=== PATIENT | female | born 1995 | race Hispanic/Latino ===

== ENCOUNTER 2018-10-31 12:37 | Emergency (ER) | payer OTHER ==
[~2018-10-31] VITALS: Ht 157.5 cm; Wt 72.7 kg
[2018-10-31 13:19] LABS: BASO % 0.4 % (0.0-1.0); EOS # 0.1 10^3/uL (0.0-0.50); EOS % 0.6 % (0.0-3.0); HEMATOCRIT 39.4 % (36.0-47.0); HEMOGLOBIN 12.8 g/dl (12.0-15.5); LYMPH # 1.3 10^3/uL (1.5-6.5); LYMPH % 16.9 % (24.0-44.0); MEAN CORPUSCULAR HEMOGLOBIN 26.6 pg (27.0-33.0); MEAN CORPUSCULAR HGB CONC 32.5 g/dl (32.0-36.5); MEAN CORPUSCULAR VOLUME 81.9 fl (80.0-96.0); MONO # 0.8 10^3/uL (0.0-0.8); MONO % 10.8 % (0.0-5.0); NEUTROPHILS # 5.5 10^3/uL (1.8-7.7); NEUTROPHILS % 70.9 % (36.0-66.0); PLATELET COUNT, AUTOMATED 195 10^3/uL (150-450); RED BLOOD COUNT 4.81 10^6/uL (4.00-5.40); WHITE BLOOD COUNT 7.8 10^3/uL (4.0-10.0)
[2018-10-31] MEDS ORDERED: AZITHROMYCIN 250 MG TAB PO ONE (13:30)
[2018-10-31 13:51] LABS: HCG, SERUM QUALITATIVE NEGATIVE (NEGATIVE)
[2018-10-31 13:52] LABS: ALBUMIN 3.8 GM/DL (3.2-5.2); ALT/SGPT 30 U/L (12-78); AMYLASE 61 U/L (25-115); BILIRUBIN,DIRECT 0.1 MG/DL (0.0-0.2); BILIRUBIN,TOTAL 0.4 MG/DL (0.2-1.0); BLOOD UREA NITROGEN 11 MG/DL (7-18); CALCIUM LEVEL 8.5 MG/DL (8.5-10.1); CARBON DIOXIDE LEVEL 23 MEQ/L (21-32); CHLORIDE LEVEL 106 MEQ/L (98-107); CREATININE FOR GFR 0.91 MG/DL (0.55-1.30); GLOMERULAR FILTRATION RATE > 60.0 (>60); GLUCOSE, FASTING 87 MG/DL (70-100); LIPASE 87 U/L (73-393); POTASSIUM SERUM 3.9 MEQ/L (3.5-5.1); SODIUM LEVEL 138 MEQ/L (136-145); TOTAL PROTEIN 7.6 GM/DL (6.4-8.2)
[2018-10-31] MEDS ORDERED: BACT800T5 PO ×2 (13:58→15:40)
[2018-10-31] MEDS ORDERED: AZIT-12 PO ×2 (13:58→15:40)
[2018-10-31 15:39] VITALS: BP 134/71
--- NOTE | 2018-11-01 07:50 | REP ---
CHEST PA AND LATERAL: 10/31/2018. CLINICAL HISTORY: Hemoptysis. FINDINGS: There are no prior studies. The two views show the lung maddox well inflated. The CP angles are sharply defined with no effusion, lateral pleural thickening, apical scarring or pneumothorax. No atelectasis, infiltrate, nodule or mass. The heart, mediastinal and hilar contours are normal. The aorta and airway grossly intact. No widening of the mediastinum. Bones show no focal lesion. There is no free air under the diaphragm. IMPRESSION: 1. There is no infiltrate, effusion, atelectasis or other acute finding in the chest. No mediastinal or hilar adenopathy/mass. No widening of the mediastinum. Airway grossly intact. Electronically Signed by Grady Castaneda MD 11/01/2018 01:01 P
== END 2018-10-31 15:45 | disposition home or self-care (01) ==
LOC: M ED 12:37
DX: R05 Cough (principal); N39.0 Urinary tract infection, site not specified; L73.9 Follicular disorder, unspecified; R79.89 Other specified abnormal findings of blood chemistry

== ENCOUNTER 2019-02-06 15:13 | Emergency (ER) | payer OTHER ==
[~2019-02-06] VITALS: Ht 157.5 cm; Wt 81.8 kg
[~2019-02-06 15:13] MED LIST: AZIT-12 PO; BACT800T5 PO
[2019-02-06] MEDS ORDERED: ACETAMINOPHEN TAB 650MG DOSE (2X325MG) PO ONE (16:15)
--- NOTE | 2019-02-06 17:10 | REP ---
Right ankle four views History: Pain There is no acute fracture or dislocation. The joint space is normal in appearance. Impression: There is no acute fracture or dislocation. Electronically Signed by lD Sanchez MD 02/06/2019 05:01 P
--- NOTE | 2019-02-06 17:12 | REP ---
Right foot four views History: Pain There is a nondisplaced fracture of the head of the third metatarsal. There is no dislocation. The joint spaces are normal in appearance. Impression: Nondisplaced fracture of the head of the third metatarsal. Electronically Signed by Dl Sanchez MD 02/06/2019 05:03 P
[2019-02-06 18:10] VITALS: BP 123/68
== END 2019-02-06 18:22 | disposition home or self-care (01) ==
LOC: M ED 15:13
DX: S92.334A Nondisplaced fracture of third metatarsal bone, right foot, initial encounter for closed fracture (principal); V49.9XXA Car occupant (driver) (passenger) injured in unspecified traffic accident, initial encounter; Y92.410 Unspecified street and highway as the place of occurrence of the external cause

== ENCOUNTER 2019-06-27 15:06 | Emergency (ER) | payer OTHER ==
[~2019-06-27] VITALS: Ht 157.5 cm; Wt 84.5 kg
[2019-06-27] MEDS ORDERED: ONDANSETRON 4 MG ORAL DISINTEGRATING TAB (Q0162 PER 1MG) PO ONE (15:45)
[2019-06-27 16:26] VITALS: BP 129/71
[2019-06-27] MEDS ORDERED: ONDA4TAB6 PO (16:30)
[2019-06-27] MEDS ORDERED: IBUPROFEN 600 MG TAB PO ONE (16:45)
--- NOTE | 2019-06-27 17:02 | REP ---
CT BRAIN WITHOUT CONTRAST: CT brain performed without IV contrast. Ventricles are normal in size and position with no midline shift or mass effect. Strickland white differentiation is well maintained. There is no acute intracranial hemorrhage or extra-axial fluid collection. No skull fracture is seen. IMPRESSION: Negative noncontrast CT brain. Electronically Signed by Christo Strickland MD 06/29/2019 09:32 A
== END 2019-06-27 16:45 | disposition home or self-care (01) ==
LOC: M ED 15:06
DX: S06.0X0A Concussion without loss of consciousness, initial encounter (principal); W22.8XXA Striking against or struck by other objects, initial encounter; Y92.89 Other specified places as the place of occurrence of the external cause; Y99.0 Civilian activity done for income or pay
CPT/HCPCS: 36415; 70450; 84702; 99283; Q0162